=== PATIENT | male | born 1965 | race Caucasian/White ===

== ENCOUNTER 2024-10-20 15:50 | Emergency (ER) | payer BC, SELFPAY ==
[2024-10-20 15:52] VITALS: BP 144/95
--- NOTE | 2024-10-20 18:32 | ED.GENMED ---
History of Present Illness
General
Chief Complaint: DVT/Possible Blood Clot
Source: patient
Exam Limitations: none
Time Seen by Provider: 10/20/24 18:02
History of Present Illness
History of Present Illness:
58yoM with a history of obesity and asthma presenting for evaluation of left lower leg swelling. Symptoms began about 3 weeks ago. He was in a bowling tournament this past weekend and woke up the next day with worsening swelling and tightness in
his calf. He was seen by his PCP today and was sent to the ED for concern for a DVT. Patient is otherwise asymptomatic and denies any chest pain, fevers, chills. He has chronic dyspnea related to his asthma but it is no worse than usual.
Past History
Past History
ED Past Medical History: Asthma
ED Past Surgical History: None
Social History
Tobacco: 2nd hand smoke exposure
Phy Exam
General Physical Exam
General Presentation: well appearing and no apparent distress
General Skin: warm and dry
General Habitus: normal
General Mental: alert
ENT Exam
ENT Exam: normocephalic
Neurological Exam
Neurological Exam: alert
Kathryn Coma Scale
Eye Opening: Spontaneous
Verbal Response: Oriented
Motor Response: Obeys Commands
GCS Total Score: 15
Musculoskeletal Exam
Musculoskeletal Exam: other (Non-pitting edema noted to L lower leg. Mild tenderness with dorsiflexion. ROM of ankle and knee intact. Compartments soft and there is no pain out of proportion. 2+ DP pulse and sensation intact.)
Skin Exam
Skin Exam: normal color and warm/dry
Psychiatric Exam
Psychiatric Exam: normal mood/affect
Course
Orders/Labs/Results
Orders:
Orders
10/20/24 15:55
US Legs, Left [US Periph Venous LOWER Ext LT] Urgent
Comment:
Reason For Exam: swelling/pain/ro blood clot
Vital Signs
Initial and Last Documented VS:
Initial Vital Signs
Temp Pulse Resp BP Pulse Ox
98.2 F 85 20 144/95 97
10/20/24 15:52 10/20/24 15:52 10/20/24 15:52 10/20/24 15:52 10/20/24 15:52
Last Documented Vital Signs
Temp Pulse Resp BP Pulse Ox
98.2 F 85 20 144/95 97
10/20/24 15:52 10/20/24 15:52 10/20/24 15:52 10/20/24 15:52 10/20/24 15:52
MDM/Problems Addressed
Differential Diagnosis Includes:
58yoM here with L lower leg swelling/pain. Started 3 weeks ago but worsening since doing a bowling tournament a few days ago. Sent in by PCP for concern for DVT. There is non-pitting edema on exam. No evidence of cellulitis. LLE is neurovascularly
intact.
Venous duplex obtained in triage which is negative for DVT. There is subcutaneous edema in the L calf with a focal fluid collection in the superficial musculature measuring 4.5 x 0.5 x 2.4cm. No clinical signs of compartment syndrome. Suspect
muscular strain. Supportive care discussed including elevation, compression, and NSAIDs. Advised f/u with PCP. Discussed ED return precautions and s/s of compartment syndrome. Patient discharged in stable condition.
*Critical Care Note
Total Time (30-74mins, 75-104mins- exclusive of procedures): Not Applicable
ED Attending Note
-
Portions of this chart may have been created with voice recognition software.� Occasional wrong word or��sound alike� substitutions may have occurred due to the inherent limitations of voice recognition software.
Discharge Plan
Departure
Patient Disposition: Home (Routine Discharge)
Date of Disposition: 10/20/24
Time of Disposition: 18:35
Patient with high blood pressure during this ER visit?: Yes
Discharge Problem:
Swelling of left lower extremity
Instructions: Swelling
Prescriptions:
No Action
fluticasone propion-salmeterol [Advair Diskus] 1 DISK blister with device
1 puff inhalation DAILY
ibuprofen 200 MG tablet
400 mg PO Q6HPRN PRN (Reason: pain)
albuterol sulfate 1 PUFF HFA aerosol inhaler
1 puff inhalation R Q4HPRN PRN (Reason: sob/wheeze)
multivitamin with folic acid [Tab-A-Paul] 1 TABLET tablet
1 tab PO DAILY
amoxicillin-pot clavulanate 1 TABLET tablet
1 tab PO Q12 Qty: 42 0RF
oxycodone-acetaminophen 5 MG/325 MG tablet
1 tab PO Q4HPRN PRN (Reason: pain) Qty: 30 0RF
Activity Restrictions/Additional Instructions:
Your ultrasound was negative for a blood clot but did show a fluid collection within a superficial muscle which could be from a muscle strain.
Elevate your leg and compress to help with swelling. Take ibuprofen as needed for pain.
Please follow-up with your family doctor. Return to the ER with any worsening symptoms including severe pain.
Interventions
Interventions:
*Risk Screen - Suicide Last Done: 10/20/24 15:52
*General Assessment Last Done: 10/20/24 15:52
*Neglect/Abuse Screening Last Done: 10/20/24 15:52
*ED- Fall Risk Assessment Last Done: 10/20/24 18:34
*ED COVID-19 Vaccine History Last Done: 10/20/24 18:34
*Nursing Disposition Last Done: 10/20/24 19:00
ED- Pulmonary Assessment Last Done: 10/20/24 18:34
ED-Peripheral Vascular Assessment Last Done: 10/20/24 18:34
ED-Skin Assessment Last Done: 10/20/24 18:34
Discharge Date and Time
Discharge Date/Time: 10/20/24 19:05
Print Language: SPANISH
== END 2024-10-20 19:05 | disposition home or self-care (01) ==
LOC: EMR 15:50
PROVIDERS: EMERGENCY PHYSICIAN Emergency Medicine; FAMILY PHYSICIAN Family Medicine
DX: R22.42 Localized swelling, mass and lump, left lower limb (principal); R03.0 Elevated blood-pressure reading, without diagnosis of hypertension; J45.909 Unspecified asthma, uncomplicated; E66.9 Obesity, unspecified; Z77.22 Contact with and (suspected) exposure to environmental tobacco smoke (acute) (chronic)
CPT/HCPCS: 99284; 93971